=== PATIENT | female | born 1985 | race Caucasian/White ===

== ENCOUNTER 2016-09-19 22:23 | Emergency (ER) | payer OTHER ==
[~2016-09-19] VITALS: Ht 175.3 cm; Wt 68.6 kg
[~2016-09-19 22:23] MED LIST: ATV/1 PO
[2016-09-19 22:25] VITALS: TEMP 37.6; Ht 175.3 cm; Wt 68.6 kg
[2016-09-19] MEDS ORDERED: SODIUM CHLORIDE 0.9% 1000ML 1,000 ML IV STA (22:48)
[2016-09-19] MEDS ORDERED: KETOROLAC TROMETHAMINE 15 MG/ML VIAL IV STA (22:48)
[2016-09-19] MEDS ORDERED: ONDANSETRON INJ 2 MG/ML 2 ML VIAL IV STA (22:48)
[2016-09-19] MEDS ORDERED: HYDROmorphone INJ 1 MG/ML SYR IV STA (22:48)
[2016-09-19] MEDS ORDERED: [UNRECOGNIZED DRUG - CODE] PO (22:52)
[2016-09-19 23:06] LABS: URINE APPEARANCE CLEAR (CLEAR); URINE BILIRUBIN NEG (NEG); URINE COLOR YELLOW; URINE EPITHELIAL CELL AUTO >30 /lpf (0-5); URINE NITRITE NEG (NEG); URINE PH 8.5 (4.5-7.5); URINE SPECIFIC GRAVITY 1.014 (1.000-1.030); UROBILINOGEN POS (NEG); ZZUR CULT IF INDIC CLEAN CATCH YES
[2016-09-19 23:22] LABS: MANUAL MICROSCOPIC REQUIRED? NO; REVIEW REQ? NO
[2016-09-19 23:23] LABS: SULFASALICYLIC ACID NEG (NEG)
[2016-09-19 23:24] LABS: BASO % 0.2 %; BASO ABS # 0.02 K/uL (0-0.2); COMPLETE YES; EOS % 0.8 %; HEMATOCRIT 40.8 % (37-47); IG% 0.3 %; LYMPH % 18.7 %; LYMPH ABS # 2.28 K/uL (1.2-3.4); MEAN CELL VOLUME 90.9 fL (80-100); MEAN CORPUSCULAR HEMOGLOBIN 31.4 pg (25-34); MEAN CORPUSCULAR HGB CONC 34.6 g/dl (32-36); MEAN PLATELET VOLUME 9.4 fL (7.4-10.4); MONO % 12.4 %; NEUT % 67.6 %; PLATELET COUNT 193 K/uL (130-400); RED BLOOD COUNT 4.49 M/uL (4.2-5.4); WHITE BLOOD COUNT 12.22 K/uL (4.8-10.8)
[2016-09-19 23:46] LABS: ALT/SGPT 17 U/L (12-78); BLOOD UREA NITROGEN 8 mg/dl (7-18); BUN/CREATININE RATIO 8.7 (10-20); CALCIUM 9.1 mg/dl (8.5-10.1); CARBON DIOXIDE 27 mmol/L (21-32); CHLORIDE 100 mmol/L (98-107); GLUCOSE 103 mg/dl (70-99); POTASSIUM 3.7 mmol/L (3.5-5.1); SODIUM 134 mmol/L (136-145)
[2016-09-19 23:49] LABS: ALKALINE PHOSPHATASE 93 U/L (45-117); AST/SGOT 11 U/L (15-37)
[2016-09-20] MEDS ORDERED: HYDROmorphone INJ 1 MG/ML SYR IV STA (00:15)
--- NOTE | 2016-09-20 01:10 | DIAGNOSTIC IMAGING REPORT ---
ULTRASOUND RIGHT UPPER QUADRANT ABDOMEN CLINICAL HISTORY: Right upper quadrant abdominal pain. COMPARISON STUDY: Abdominal CT dated 12/29/2015. Abdominal ultrasound dated 02/04/2016. TECHNIQUE: Real-time, grayscale, and color flow sonography of the right upper quadrant of the abdomen was performed. Images are reviewed in the transverse and longitudinal planes. FINDINGS: Liver: The liver is enlarged, measuring 20 cm in length. The liver demonstrates heterogeneously increased echotexture consistent with hepatic steatosis. There is no intrahepatic biliary ductal dilatation. The main portal vein is patent. Gallbladder: The gallbladder is contracted and grossly unremarkable. No shadowing gallstones are identified. There is no gallbladder wall thickening or pericholecystic fluid. A sonographic Sawant's sign is reportedly absent. The common bile duct measures up to 0.5 cm in diameter. Pancreas: Visualized portions of the pancreatic head and body are normal in appearance. The splenic vein is patent. No peripancreatic fluid is seen. Right kidney: Survey images of the right kidney demonstrate normal size and echotexture. There is no hydronephrosis. There is mild fullness the right renal collecting system. This is similar to previous. Ascites: None. IMPRESSION: 1. No acute sonographic abnormality is identified. No gallstones are seen. 2. Hepatomegaly and hepatic steatosis. Electronically signed by: Eric Cortez M.D. 09/20/2016 1:09 AM Dictated Date/Time: 09/20/2016 1:07 AM
[2016-09-20] MEDS ORDERED: HYDROmorphone INJ 0.5 MG/0.5 ML SYR IV STA (01:18)
[2016-09-20] MEDS ORDERED: OPTIRAY 320 IV PRN (01:30)
--- NOTE | 2016-09-20 02:08 | DIAGNOSTIC IMAGING REPORT ---
CT SCAN OF THE ABDOMEN AND PELVIS WITH IV CONTRAST CLINICAL HISTORY: Right upper quadrant abdominal pain. COMPARISON STUDY: Abdominal CT dated 12/29/2015. Abdominal ultrasound dated 09/20/2016. TECHNIQUE: Following the IV administration of 100 cc of Optiray 320, CT scan of the abdomen and pelvis is performed from the lung bases to the proximal femora. Images are reviewed in the axial, sagittal, and coronal planes. IV contrast was administered without complication. Automated dose control exposure was utilized. CT DOSE: 313.09 mGy.cm FINDINGS: Lung bases: The heart is normal in size and without pericardial effusion. The lung bases are clear. Liver: The contrast-enhanced liver is enlarged, measuring 19.7 cm in length. The liver demonstrates diffusely diminished attenuation consistent with hepatic steatosis. There is no intrahepatic biliary ductal dilatation. The hepatic veins and portal veins are patent. Gallbladder: Contracted. Spleen: Normal in size and attenuation. Pancreas: Unremarkable. Adrenal glands: Unremarkable. Kidneys: The contrast enhanced kidneys are normal in size and without hydronephrosis. There is symmetric cortical enhancement. There is heterogeneous perfusion of the left kidney, greatest in the upper and lower pole. The right kidney enhances homogeneously. Abdominal vasculature: The abdominal aorta is normal in course and caliber. Bowel: The small bowel and colon are normal in course and caliber. There is moderate colonic fecal retention. The appendix is well-visualized and normal. Peritoneum: There is no intraperitoneal free air or abdominal ascites. There is a small fat-containing umbilical hernia. Lymphadenopathy: None. Pelvic viscera: The bladder, uterus, and adnexa are normal as visualized. There are bilateral ovarian follicles. An involuting follicle suggested in the left ovary. Trace free fluid in the cul-de-sac is likely within physiologic limits. Skeletal structures: No lytic or blastic lesions are seen. IMPRESSION: 1. There is heterogeneous perfusion of the left kidney. This is a nonspecific finding but can be seen in the setting of pyelonephritis. Correlation with clinical findings and urinalysis will be required. 2. The right kidney enhances homogeneously. 3. Hepatomegaly and hepatic steatosis. 4. Moderate constipation. 5. Additional findings as above. Electronically signed by: Eric Cortez M.D. 09/20/2016 2:07 AM Dictated Date/Time: 09/20/2016 2:00 AM
[2016-09-20] MEDS ORDERED: SULF800T23 PO (02:44)
[2016-09-20] MEDS ORDERED: OXYC1TAB3 PO (02:44)
[2016-09-20] MEDS ORDERED: ONDANSETRON HOME PACK 4MG OD TAB PO ONE (02:45)
[2016-09-20] MEDS ORDERED: SEPTRA DS HOME PACK 1 EA VIAL PO ONE (02:45)
[2016-09-20] MEDS ORDERED: ONDA4TAB10 SL (02:45)
[2016-09-20] MEDS ORDERED: OXYCODONE IR HOME PACK PO ONE (02:45)
--- NOTE | 2016-09-20 02:45 | EMERGENCY ROOM VISIT NOTE ---
History First contact with patient: 22:30 Chief Complaint: ABDOMINAL PAIN Stated Complaint: PANCREATITIS Nursing Triage Summary: Pt reports generalized abdominal pain that began approx 3 days ago. Unable to move bowels since pain began. Pt reports the pain feel like pressure on the L side and is similar to how she felt when she had pancreatitis. Pt rates pain 10/10 at this time. History of Present Illness The patient is a 31 year old female who presents to the Emergency Room with complaints of abdominal pain which began 3 days ago. The patient states that the pain is located across the upper abdomen. The pain radiates into her back. She states it hurts to breathe and she is bloated. She has had 3 episodes of vomiting today. She reports that she felt feverish, but did not take her temperature. She has a cramping sensation across her entire abdomen. She states the pain is now constant and stabbing. She rates the discomfort a 10/ 10. The pain is worse when she eats or drinks anything. The patient states she does have a history of pancreatitis and the symptoms feel similar. She states that she does drink occasionally, and did drink some alcohol last week prior to the onset of symptoms. Her last menstrual period was 2.5 weeks ago. She denies any urinary symptoms, chest pain, changes in bowel movements or blood in her stools. Review of Systems A complete 10 point review of systems was reviewed with the patient with pertinent positives and negatives as per history of present illness. All else were negative. Past Medical/Surgical History Medical Problems: (1) Anxiety (2) Heroin addiction Surgical Problems: (1) H/O section Family History FHx: lung disease Hypertension Seizures Social History Smoking Status: Current Every Day Smoker Alcohol Use: occasionally Drug Use: none Marital Status: in relationship Housing Status: lives with family Occupation Status: unemployed Current/Historical Medications Scheduled Lorazepam (Ativan), 2 MG PO BID Methadone Hcl (Methadone Hcl), 10 ML PO DAILY Ondasetron Odt (Zofran Odt), 4 MG SL Q6H Sulfa/Trimethoprim (Bactrim Ds 800MG/160MG), 1 TAB PO BID Scheduled PRN Oxycodone Ir (Roxicodone Ir), 1 TAB PO Q6H PRN for Pain Allergies Coded Allergies: No Known Allergies (Unverified , 09/19/16) Physical Exam Vital Signs Date Time Temp Pulse Resp B/P (MAP) Pulse Ox O2 Delivery O2 Flow Rate FiO2 09/20/16 03:20 75 18 109/63 97 09/20/16 02:35 79 20 112/70 95 Room Air 09/20/16 00:25 76 16 117/64 97 Room Air 09/19/16 22:25 37.6 106 18 119/74 99 Room Air Physical Exam VITALS: Vitals are noted on the nurse's note and reviewed by myself. Vital signs stable. GENERAL: This is a 31-year-old female, in no acute distress, nondiaphoretic, well-developed well-nourished. HEENT: Normocephalic. PERRLA. EOMI. Nares patent. Mucous membranes moist. Neck is supple without nuchal rigidity. HEART: Regular rate and rhythm without murmurs gallops or rubs. LUNGS: Clear to auscultation bilaterally without wheezes, rales or rhonchi. ABDOMEN: Positive bowel sounds x 4. Soft, tender across the epigastric region and right upper quadrant. No guarding or rebound tenderness. Negative Sawant sign. NEURO: Patient was alert and oriented to person place and time. Medical Decision & Procedures ER Provider Diagnostic Interpretation: ULTRASOUND RIGHT UPPER QUADRANT ABDOMEN IMPRESSION: 1. No acute sonographic abnormality is identified. No gallstones are seen. 2. Hepatomegaly and hepatic steatosis. CT SCAN OF THE ABDOMEN AND PELVIS WITH IV CONTRAST IMPRESSION: 1. There is heterogeneous perfusion of the left kidney. This is a nonspecific finding but can be seen in the setting of pyelonephritis. Correlation with clinical findings and urinalysis will be required. 2. The right kidney enhances homogeneously. 3. Hepatomegaly and hepatic steatosis. 4. Moderate constipation. 5. Additional findings as above. Laboratory Results 09/19/16 23:10 Red Blood Count 4.49, Mean Corpuscular Volume 90.9, Mean Corpuscular Hemoglobin 31.4, Mean Corpuscular Hemoglobin Concent 34.6, Mean Platelet Volume 9.4, Neutrophils (%) (Auto) 67.6, Lymphocytes (%) (Auto) 18.7, Monocytes (%) (Auto) 12.4, Eosinophils (%) (Auto) 0.8, Basophils (%) (Auto) 0.2, Neutrophils # (Auto ) 8.26, Lymphocytes # (Auto) 2.28, Monocytes # (Auto) 1.52, Eosinophils # (Auto ) 0.10, Basophils # (Auto) 0.02 09/19/16 23:10 Test 09/19/16 22:53 09/19/16 23:10 Urine Color YELLOW Urine Appearance CLEAR (CLEAR) Urine pH 8.5 (4.5-7.5) Urine Specific [place] 1.014 (1.000-1.030) Urine Protein NEG (NEG) Urine Glucose (UA) NEG (NEG) Urine Ketones NEG (NEG) Urine Occult Blood TRACE (NEG) Urine Nitrite NEG (NEG) Urine Bilirubin NEG (NEG) Urine Urobilinogen POS (NEG) Urine Leukocyte Esterase TRACE (NEG) Urine WBC (Auto) 5-10 /hpf (0-5) Urine RBC (Auto) 5-10 /hpf (0-4) Urine Hyaline Casts (Auto) 1-5 /lpf (0-5) Urine Epithelial Cells (Auto) >30 /lpf (0-5) Urine Bacteria (Auto) 1+ (NEG) Urine Test NEG (NEG) White Blood Count 12.22 K/uL (4.8-10.8) Red Blood Count 4.49 M/uL (4.2-5.4) Hemoglobin 14.1 g/dL (12.0-16.0) Hematocrit 40.8 % (37-47) Mean Corpuscular Volume 90.9 fL (80-100) Mean Corpuscular Hemoglobin 31.4 pg (25-34) Mean Corpuscular Hemoglobin Concent 34.6 g/dl (32-36) Platelet Count 193 K/uL (130-400) Mean Platelet Volume 9.4 fL (7.4-10.4) Neutrophils (%) (Auto) 67.6 % Lymphocytes (%) (Auto) 18.7 % Monocytes (%) (Auto) 12.4 % Eosinophils (%) (Auto) 0.8 % Basophils (%) (Auto) 0.2 % Neutrophils # (Auto) 8.26 K/uL (1.4-6.5) Lymphocytes # (Auto) 2.28 K/uL (1.2-3.4) Monocytes # (Auto) 1.52 K/uL (0.11-0.59) Eosinophils # (Auto) 0.10 K/uL (0-0.5) Basophils # (Auto) 0.02 K/uL (0-0.2) RDW Standard Deviation 48.8 fL (36.4-46.3) RDW Coefficient of Variation 14.8 % (11.5-14.5) Immature Granulocyte % (Auto) 0.3 % Immature Granulocyte # (Auto) 0.04 K/uL (0.00-0.02) Anion Gap 7.0 mmol/L (3-11) Est Creatinine Clear Calc Drug Dose 94.7 ml/min Estimated GFR () 98.7 Estimated GFR (Non- 85.2 BUN/Creatinine Ratio 8.7 (10-20) Calcium Level 9.1 mg/dl (8.5-10.1) Total Bilirubin 0.4 mg/dl (0.2-1) Direct Bilirubin < 0.1 mg/dl (0-0.2) Aspartate Amino Transf (AST/SGOT) 11 U/L (15-37) Alanine Aminotransferase (ALT/SGPT) 17 U/L (12-78) Alkaline Phosphatase 93 U/L (45-117) Total Protein 7.5 gm/dl (6.4-8.2) Albumin 3.3 gm/dl (3.4-5.0) Lipase 115 U/L (73-393) Medications Administered Medications (Trade) Dose Ordered Sig/Angelica Route Start Time Stop Time Status Last Admin Dose Admin Hydromorphone HCl (Dilaudid Inj) 1 mg NOW STAT IV 09/19/16 22:48 09/19/16 22:51 DC 09/19/16 23:24 1 MG Sodium Chloride 1,000 ml @ 999 mls/hr Q1H1M STAT IV 09/19/16 22:48 09/19/16 23:48 DC 09/19/16 23:25 999 MLS/HR Ondansetron HCl (Zofran Inj) 4 mg NOW STAT IV 09/19/16 22:48 09/19/16 22:51 DC 09/19/16 23:25 4 MG Ketorolac Tromethamine (Toradol Inj) 15 mg NOW STAT IV 09/19/16 22:48 09/19/16 22:51 DC 09/19/16 23:25 15 MG Hydromorphone HCl (Dilaudid Inj) 1 mg NOW STAT IV 09/20/16 00:15 09/20/16 00:16 DC 09/20/16 00:23 1 MG Hydromorphone HCl (Dilaudid Inj) 0.5 mg NOW STAT IV 09/20/16 01:18 09/20/16 01:19 DC 09/20/16 01:30 0.5 MG Oxycodone HCl (Roxicodone Immediate Rel 5MG Home Pack) 1 homepack UD ONCE PO 09/20/16 02:45 09/20/16 02:46 DC 09/20/16 02:45 1 HOMEPACK Ondansetron HCl (ZOFRAN ODT 4MG Home Pack) 1 homepack UD ONCE PO 09/20/16 02:45 09/20/16 02:46 DC 09/20/16 02:45 1 HOMEPACK Trimethoprim/ Sulfamethoxazole (Sulfameth/ Trimeth Ds 800/ 160MG Home Pack) 1 homepack UD ONCE PO 09/20/16 02:45 09/20/16 02:46 DC 09/20/16 02:45 1 HOMEPACK ED Course The patient was evaluated as above. Labs were drawn and IV access was obtained. Patient was medicated with 1 mg Dilaudid IV. Ultrasound of the right upper quadrant was performed and read by radiology as above. Patient was reevaluated and had continued pain. She was given an additional [address] scan was ordered due to negative ultrasound and continued pain. Patient was reevaluated and findings were discussed. She will be discharged home. She did request one additional dose of pain medication prior to discharge and was given 0.5 mg Dilaudid. Discharge instructions were reviewed with the patient. The patient verbalized understanding of my assessment and treatment plan and was discharged home in good condition. Medical Decision Differential diagnosis includes pancreatitis, cholecystitis, pyelonephritis, kidney stone, ovarian cyst, ovarian torsion, colitis, gastroenteritis, appendicitis, among others. The patient is a 31-year-old female who presents today complaining of upper abdominal pain. The patient does have a history of pancreatitis. Labs revealed mild leukocytosis secondary to infection or possibly vomiting. No anemia or concerning electrolyte abnormalities. Kidney liver functions were within normal limits. Right upper quadrant ultrasound was negative. Due to persistent pain and leukocytosis, CT of the abdomen and pelvis was ordered. This showed evidence of possible pyelonephritis. Urinalysis was suggestive of possible infection and given the CT read she will be treated for urinary tract infection. She was given a very short course of pain medication at home, as the patient does have a history of drug abuse. She was instructed to follow-up with her primary care provider return if worsening or new/concerning symptoms. Based on the patient's presentation and work up, I feel the patient is stable for outpatient treatment. The patient was educated to return to the emergency department for any worsening of their current condition or new/concerning symptoms. She will follow up with her PCP. Medication reconciliation: I attest that I have personally reviewed the patient 's current medication list. Blood pressure screening: Patient was found to have normal blood pressure on screening and does not require follow-up. [place] Drug Monitoring Program Search Results: patient reviewed within database, no issues identified Impression Primary Impression: Upper abdominal pain Additional Impression: Urinary tract infection Departure Information Dispostion Home / Self-Care Condition GOOD Prescriptions Ondasetron Odt (ZOFRAN ODT) 4 Mg Tab 4 MG SL Q6H for Nausea, #15 TAB Prov: Mariluz Hernández PA-C 09/20/16 Oxycodone Ir (Roxicodone Ir) 5 Mg Tab 1 TAB PO Q6H Y for Pain, #4 TAB For Initial Treatment Prov: Mariluz Hernández PA-C 09/20/16 Sulfa/Trimethoprim (Bactrim Ds 800MG/160MG) Tab 1 TAB PO BID for 7 Days, #14 TAB Prov: Mariluz Hernández PA-C 09/20/16 Referrals Aidan Marie III, CRNP (PCP) Patient Instructions My [facility] Additional Instructions You have been treated in the Emergency Department for a Urinary Tract Infection (UTI). You have been prescribed Bactrim to be taken twice daily. This is an antibiotic. All antibiotics have the potential to cause diarrhea. Stop this medication and contact a medical provider if you were to develop any significant adverse side effects including: wheezing, shortness of breath, passing out, vomiting, or a diffuse rash. Always take antibiotics as directed and COMPLETE the ENTIRE course regardless of the improvement of your symptoms. You have been prescribed Oxy IR to be used for pain control. Take 1-2 tablets every 4-6 hours as needed for pain. This is a narcotic medication. You cannot drive or consume alcohol while on this medicine. This medicine should only be used for pain that cannot be controlled with [id number] pain medicines. You have been prescribed Zofran to be used for any nausea or vomiting. Take as prescribed. Drink plenty of water and stay well hydrated. As with any trip to the Emergency Department, you should follow-up with your Primary Care Provider from today's visit. Return to the emergency department if your symptoms persist despite treatment plan outlined above or if the following symptoms occur: increased fevers, chills , low back pain, nausea/vomiting, or blood in your urine. Problem Qualifiers
[2016-09-20 03:20] VITALS: BP 109/63; PULSE 75; O2SAT 97
== END 2016-09-20 03:21 | disposition home or self-care (01) ==
LOC: C.EDB 22:24
DX: N39.0 Urinary tract infection, site not specified (principal); F41.9 Anxiety disorder, unspecified; Z82.49 Family history of ischemic heart disease and other diseases of the circulatory system; Z82.0 Family history of epilepsy and other diseases of the nervous system; F11.21 Opioid dependence, in remission; F17.210 Nicotine dependence, cigarettes, uncomplicated; Z79.899 Other long term (current) drug therapy

== ENCOUNTER 2024-06-11 23:26 | Observation (INO) ==
[2024-06-12 00:17] LABS: Appearance Urine Clear (Clear); Bilirubin Urine Negative (Negative); Blood Urine Negative (Negative); Color Urine Yellow; Glucose Urine UA 2+ (Negative); Ketones Urine Negative (Negative); Leukocyte Esterase Urine Negative (Negative); Nitrite Urine Negative (Negative); Protein Urine Negative (Negative); Specific Gravity Urine 1.003 (1.000-1.030); Urobilinogen Urine Negative (Negative); pH Urine 6.5 (4.5-7.5)
[2024-06-12] MEDS: LORazepam 2 MG/1 ML VIAL IV STA ×2 (00:26→04:17)
[2024-06-12 00:33] LABS: Basophils # (auto) 0.06 K/uL (0.00-0.20); Basophils % (auto) 0.6 %; Eosinophils # (auto) 0.05 K/uL (0.00-0.50); Eosinophils % (auto) 0.5 %; Hematocrit (blood only) 36.8 % (37.0-47.0); Hemoglobin 11.5 g/dl (12.0-16.0); Immature Granulocytes # (auto) 0.04 K/uL (0.01-0.20); Immature Granulocytes % (auto) 0.4 %; Lymphocytes # (auto) 2.24 K/uL (1.20-3.40); Lymphocytes % (auto) 21.2 %; Mean Corpuscular Hemoglobin 24.7 pg (25.0-34.0); Mean Corpuscular Hgb Conc 31.3 g/dL (32.0-36.0); Mean Platelet Volume 11.1 fL (9.4-12.4); Monocytes % (auto) 7.6 %; Neutrophils # (auto) 7.38 K/uL (1.40-6.50); Neutrophils % (auto) 69.7 %; Platelet Count 195 K/uL (130-400); RDW Coefficient of Variation 19.9 % (11.5-14.5); RDW Standard Deviation 56.7 fL (36.4-46.3); Red Blood Count 4.66 M/uL (4.20-5.40); White Blood Count 10.57 K/ul (4.8-10.8)
[2024-06-12 00:50] LABS: Albumin Level 4.5 gm/dl (3.4-5.0); BUN Creatinine Ratio 7.5 (10-20); Bilirubin,Total 0.9 mg/dl (0.2-1.0); Calcium 9.9 mg/dl (8.6-10.3); Creatinine Clr Calc Pharmacy 129.6 ml/min; Globulin 4.4 gm/dl (2.5-4.0); Potassium 3.6 mmol/L (3.5-5.1); Total Protein 8.9 gm/dl (6.0-8.3)
[2024-06-12 00:57] LABS: Troponin I High Sensitivity 3.7 pg/ml (0-14)
[2024-06-12 01:03] LABS: Adenovirus PCR Not Detected (NotDetected); Bordetella parapertussis PCR Not Detected (NotDetected); Bordetella pertussis PCR Not Detected (NotDetected); Chlamydia pneumoniae PCR Not Detected (NotDetected); Coronavirus 229E PCR Not Detected (NotDetected); Coronavirus CoV-2 (COVID19)PCR Not Detected (NotDetected); Coronavirus HKU1 PCR Not Detected (NotDetected); Coronavirus NL63 PCR Not Detected (NotDetected); Coronavirus OC43PCR Not Detected (NotDetected); Human Metapneumovirus PCR Not Detected (NotDetected); Influenza A PCR Not Detected (NotDetected); Influenza B PCR Not Detected (NotDetected); Mycoplasma pneumoniae PCR Not Detected (NotDetected); Parainfluenza Virus 1 PCR Not Detected (NotDetected); Parainfluenza Virus 2 PCR Not Detected (NotDetected); Parainfluenza Virus 3 PCR Not Detected (NotDetected); Parainfluenza Virus 4 PCR Not Detected (NotDetected); Respiratory Syncytial VirusPCR Not Detected (NotDetected); Rhinovirus/Enterovirus PCR Not Detected (NotDetected)
[2024-06-12] MEDS: OPTIRAY 320 100ml IV ONE (01:04)
[2024-06-12 01:14] LABS: D Dimer 220 ug/L FEU (0-500)
--- NOTE | 2024-06-12 02:02 | XRay Report ---
EXAM: XR chest 1V portable CLINICAL HISTORY: Hypoxia. TECHNIQUE: An X-ray image of the chest is obtained in AP projection. COMPARISON: No prior studies are available for comparison. FINDINGS: Pulmonary Parenchyma: Lungs are clear bilaterally. No evidence of consolidation, collapse, or focal opacities. Prominent central bronchovascular markings. No evidence of pleural effusion or pleural thickening. Heart and Mediastinum: Heart size and shape are normal. No mediastinal widening or masses. Bony Thorax: The bony thorax appears intact without acute fractures or deformities. Old healed fracture of left clavicle. Soft Tissues: Soft tissues overlying the chest wall are unremarkable. IMPRESSION: 1. No pulmonary consolidation or collapse. 2. Prominent bronchovascular markings. Clinical correlation is advised to assess for bronchitis/pulmonary congestion. Electronically signed by Alex Tineo 06-12-2024 02:01 AM
--- NOTE | 2024-06-12 02:19 | Emergency Department Note ---
Impression & Plan Alcohol withdrawal, Acute hyperglycemia, Hypoxia admit to the [facility] ED Provider Note NAME: CHEPE ALFREDO AGE: 39 SEX: Female INFORMANT: Patient ED PROVIDER(S): Patricia Wahl DO CHIEF COMPLAINT: Abdominal pain and pressure PLAN: Disposition: admit to the [facility] MEDICAL DECISION MAKING: This is a 39-year-old female patient who presents to the emergency department with worsening abdominal pain and Abdominal pressure over the past couple days, especially on the right side of her abdomen. She also gives a history of foul- smelling urine for the past 6-8 weeks. patient does describe some episodes of constipation. Patient has found herself extremely anxious tonight. She ran out of her Klonopin 5 days ago. laboratory studies revealed no leukocytosis. The patient was mildly anemic with hemoglobin of 11.5. Sodium was slightly low at 133. Glucose was significantly elevated at 300. This is a new finding for the patient. alcohol level was 51.Patient became significantly hypoxic with O2 saturations of 83% on room air. She was placed on supplemental oxygen. Chest x-ray was performed was unremarkable. D-dimer was obtained and was negative. patient was treated with IV Ativan for symptoms of anxiety and what seems to be some alcohol withdrawal symptoms. CT scan of the abdomen/pelvis shows significant hepatomegaly and hepatic steatosis but no other significant findings. The hyperglycemia is certainly a new finding for this patient and the episodes of hypoxia may be related to lack of deep breathing secondary to the pain she experiences when she takes a deep breath. I discussed the case with the [facility] and they will evaluate for further inpatient care. Care/management discussed with: teaching manager and [facility] Triage Nursing notes: reviewed and agree With them. Vital Signs: reviewed and unremarkable Additional History obtained from: the patient's mother who is at the bedside Chronic Medical/Social Conditions affecting care: patient describes having hepatitis C which has been treated and hepatitis B which is dormant as she describes it Differential Diagnosis: renal failure, UTI, liver failure, alcohol withdrawal, ascites Diagnostics, independently interpreted by me: ECG: normal sinus rhythm at a rate of 94 with a prolonged QT at [address] segment elevation or signs of ischemia. There is no ectopy. Cardiac Monitoring: Normal sinus rhythm at 82 Imaging studies: Portable chest x-ray: No acute pulmonary infiltrates or consolidation. HPI: 39 year old Female arrives for evaluation of abdominal pressure and pain. worsening abdominal pain and Abdominal pressure over the past couple days, especially on the right side of her abdomen. She also gives a history of foul- smelling urine for the past 6-8 weeks. patient does describe some episodes of constipation. Patient has found herself extremely anxious tonight. She ran out of her Klonopin 5 days ago. PAST MEDICAL HISTORY: See Below, PAST SURGICAL HISTORY: See Below, SOCIAL HISTORY: See Below, HOME MEDICATIONS: See list ALLERGIES: none VITALS: See Below PHYSICAL EXAMINATION: HEENT: Head - normocephalic and atraumatic. Pupils are equal, round, and reactive to light. Extraocular eye muscles are intact, and sclera are anicteric. Nose - moist nasal mucosa without discharge. Mouth - moist buccal mucosa. Oropharynx is nonerythematous and there is no tonsillar exudate or edema noted. Neck: Supple; no Cervical lymphadenopathy or nuchal rigidity. There is no thyromegaly. Heart: Tachycardic rate and regular rhythm. There is a normal S1 and S2 with no murmurs, clicks, or gallops appreciated. Lungs: Clear to auscultation bilaterally with no wheezes, rales, or rhonchi. Abdomen: Soft, moderately distended with pain to palpation in the right upper and lower quadrants of the abdomen. There are no palpable pulsatile masses or hepatosplenomegaly. There is no guarding, rigidity, or rebound noted. Extremities: No evidence of cyanosis, clubbing, or edema. There are easily palpable peripheral pulses. Skin: warm and dry with good turgor and no rashes. Emergency department treatment: court monitor, supplemental oxygen, IV Ativan, IV normal saline solution.IV Toradol, IV Ativan emergency department course: The patient was evaluated in room A-11. A complete history and physical was performed. IV lock was initiated and labs were drawn as above. An order was placed for continuous cardiac monitoring. The patient was in a normal sinus rhythm at a rate of 82. Twelve-lead EKG was obtained as described above. The patient was given a dose of IV Ativan for her significant anxiety. Portable chest x-ray was performed. Patient had episodes of hypoxia was placed on supplemental oxygen. She went on to receive a dose of IV Toradol for the right sided abdominal pain that she was experiencing. Upper respiratory bio fire testing was obtained and was negative. She went for CT scan of the abdomen/pelvis. Patient was significantly hyperglycemic with a blood sugar of 300. She was started on IV normal saline. She appeared to be having increased anxiety/ alcohol withdrawal. I discussed the case with the [facility] Hospitalist and they will evaluate for further inpatient care. Past Med/Surg History Problem List (Updated 06/12/24 @ 07:46 by Patricia Wahl DO) Hypoxia (Acute) Acute hyperglycemia (Acute) Alcohol withdrawal (Acute) Tobacco abuse Constipation Abdominal pain Transaminitis Hyperglycemia Acute hypoxic respiratory failure Alcohol abuse Smoker Heroin addiction Sore throat Hepatitis C Lower back pain Anxiety (Chronic) Surgical History H/O oral surgery H/O section Family History Mother Panic attacks Bipolar 1 disorder Denies family history of Ovarian cancer Prostate cancer Myocardial infarction Breast cancer Colorectal cancer Social History Smoking Status: Current every day smoker Tobacco Type: Cigarettes Age Started Using Tobacco: 16; packs per day: 0.5; Cigarettes Per Day: 20; Second Hand Exposure: No; Do You Dip or Chew Tobacco: No; Hx Alcohol Use: Yes Alcohol type: hard liquor Hx Substance Use: Yes Last Used Substance Other:: 2010 Preferred Language: Malay Communication Ability: Effective Visual Impairment: No Limitations Hearing Ability: Normal Service Delivery Management Consultant Required: No Beliefs That Will Affect Care: None marital status: Single Current Living Situation: Family Current Living Situation Comment: lives with partner and 4 children current occupational status: unemployed Feels Safe at Home: Yes Childhood Exposure to Second-Hand Smoke: Yes Diet: low carbohydrate and regular Dental Care, Regularly: Yes Physical Activity Frequency: 1-2 Times per Week Seatbelt Use: always Sunscreen Use: Yes Assistive Devices: Denture - Upper and Denture - Lower Allergies Allergies Allergy/AdvReac Type Severity Reaction Status Date / Time No Known Allergies Allergy Verified 06/12/24 01:32 Home Meds Home Medications Medication Instructions Recorded Confirmed albuterol sulfate 90 mcg/actuation 1 - 2 puff inhalation .Q4-6HRS PRN 06/12/24 06/12/24 aerosol inhaler (Ventolin HFA) shortness of breath or wheezing methadone 5 mg/5 mL oral solution 43 mg PO DAILY 06/12/24 06/12/24 Previous Rx's Medication Instructions Recorded ondansetron HCl 8 mg tablet 8 mg PO Q12H PRN nausea and 04/06/24 vomiting #60 tabs fluoxetine 20 mg capsule 20 mg PO DAILY #30 caps 05/05/24 clonazepam 0.5 mg tablet See Rx Instructions PO .COMPLEX 05/17/24 #60 tabs buspirone 10 mg tablet 10 mg PO TID PRN anxiety #90 tabs 06/09/24 gabapentin 400 mg capsule 400 mg PO TID #45 caps 06/09/24 docusate sodium 100 mg capsule 100 mg PO BID #0 caps 06/12/24 Results & Data (ED) Vital Signs Vital Signs - 24 hr 06/11/24 23:38 06/11/24 23:54 06/12/24 00:02 Temperature 36.7 C Temperature Source Oral Pulse Rate 106 H 106 H Pulse Rate [Apical] 104 H Pulse Rate from SpO2 Sensor Respiratory Rate 16 20 Respiratory Effort / Characteristics Non-Labored Spontaneous Non-Labored Spontaneous Respiratory Pattern Regular Blood Pressure 157/104 H Blood Pressure [Right Arm] 140/92 Blood Pressure Mean 121 Blood Pressure Mean [Right Arm] 108 Blood Pressure Position Lying Blood Pressure Position [Right Arm] Pulse Oximetry 98 96 Oxygen Delivery Method Room Air Room Air Oxygen Flow Rate Sepsis Recent Fever Within 48 Hours No Sepsis New/Unexplained Change in Mental Status No Sepsis Action Taken by Nursing No Action Required Oxygen Flow Rate - Titration Pulse Oximetry Post Tiitration 06/12/24 00:13 06/12/24 00:51 06/12/24 01:36 Temperature Temperature Source Pulse Rate 104 H Pulse Rate [Apical] 82 Pulse Rate from SpO2 Sensor Respiratory Rate 18 18 Respiratory Effort / Characteristics Non-Labored Spontaneous Respiratory Pattern Regular Blood Pressure Blood Pressure [Right Arm] 114/73 Blood Pressure Mean Blood Pressure Mean [Right Arm] 86 Blood Pressure Position Blood Pressure Position [Right Arm] Lying Pulse Oximetry 97 83 L 93 Oxygen Delivery Method Room Air Room Air Nasal Cannula Nasal Cannula Oxygen Flow Rate 0 3 Sepsis Recent Fever Within 48 Hours Sepsis New/Unexplained Change in Mental Status Sepsis Action Taken by Nursing Oxygen Flow Rate - Titration 3 Pulse Oximetry Post Tiitration 96 06/12/24 02:30 06/12/24 03:24 06/12/24 03:30 Temperature Temperature Source Pulse Rate 83 79 Pulse Rate [Apical] 75 Pulse Rate from SpO2 Sensor 80 Respiratory Rate 20 22 Respiratory Effort / Characteristics Non-Labored Spontaneous Respiratory Pattern Blood Pressure 135/95 Blood Pressure [Right Arm] 134/80 Blood Pressure Mean 108 Blood Pressure Mean [Right Arm] 98 Blood Pressure Position Blood Pressure Position [Right Arm] Lying Pulse Oximetry 99 99 Oxygen Delivery Method Nasal Cannula Nasal Cannula Oxygen Flow Rate 3 3 Sepsis Recent Fever Within 48 Hours Sepsis New/Unexplained Change in Mental Status Sepsis Action Taken by Nursing Oxygen Flow Rate - Titration Pulse Oximetry Post Tiitration 06/12/24 03:45 06/12/24 04:00 Temperature Temperature Source Pulse Rate 76 81 Pulse Rate [Apical] Pulse Rate from SpO2 Sensor 77 83 Respiratory Rate 16 18 Respiratory Effort / Characteristics Respiratory Pattern Blood Pressure 129/92 118/89 Blood Pressure [Right Arm] Blood Pressure Mean 104 98 Blood Pressure Mean [Right Arm] Blood Pressure Position Blood Pressure Position [Right Arm] Pulse Oximetry 99 100 Oxygen Delivery Method Nasal Cannula Nasal Cannula Oxygen Flow Rate 3 3 Sepsis Recent Fever Within 48 Hours Sepsis New/Unexplained Change in Mental Status Sepsis Action Taken by Nursing Oxygen Flow Rate - Titration Pulse Oximetry Post Tiitration Laboratory Data 06/11/24 23:45 06/11/24 23:45 Lab Results 06/11/24 06/12/24 06/12/24 Range/Units 23:45 00:00 02:50 WBC 10.57 (4.8-10.8) K/ul RBC 4.66 (4.20-5.40) M/uL Hgb 11.5 L (12.0-16.0) g/dl POC Hgb 12.2 (12.0-16.0) g/dl Hct 36.8 L (37.0-47.0) % POC Hct 36 L (37-47) % MCV 79.0 L (80.0-100.0) fL MCH 24.7 L (25.0-34.0) pg MCHC 31.3 L (32.0-36.0) g/dL RDW Std Deviation 56.7 H (36.4-46.3) fL RDW Coeff of Migel 19.9 H (11.5-14.5) % Plt Count 195 (130-400) K/uL MPV 11.1 (9.4-12.4) fL Immature Gran % (Auto) 0.4 % Neut % (Auto) 69.7 % Lymph % (Auto) 21.2 % Cotton % (Auto) 7.6 % Eos % (Auto) 0.5 % Baso % (Auto) 0.6 % Neut # (Auto) 7.38 H (1.40-6.50) K/uL Lymph # (Auto) 2.24 (1.20-3.40) K/uL Cotton # (Auto) 0.80 H (0.11-0.59) K/uL Eos # (Auto) 0.05 (0.00-0.50) K/uL Baso # (Auto) 0.06 (0.00-0.20) K/uL Immature Gran # (Auto) 0.04 (0.01-0.20) K/uL D-Dimer 220 (0-500) ug/L FEU POC pH 7.41 (7.35-7.45) POC pCO2 45 (35-46) mmHg POC pO2 50 L (80-95) mmHg POC HCO3 28 H (19-24) trey/L POC Total CO2 30 (24-31) mmol/L POC Base Excess 4.0 H (-9-1.8) trey/L POC ABG O2 Sat 85.0 L (90-95) % POC Sodium 138 (135-144) mmol/L Sodium 133 L (136-145) mmol/L POC Potassium 3.8 (3.3-5.0) mmol/L Potassium 3.6 (3.5-5.1) mmol/L Chloride 96 L (98-107) mmol/L Carbon Dioxide 27 (21-32) mmol/L Anion Gap 10 (3-11) BUN 5 L (6-23) mg/dl Creatinine 0.67 (0.6-1.2) mg/dl Est Cr Clr Drug Dosing 129.6 ml/min eGFR 113.95 BUN/Creatinine Ratio 7.5 L (10-20) Glucose 300 H (70-99(Fasting)) mg/dl POC Glucose (70-99) mg/dl Estimat Average Glucose 249 mg/dl Hemoglobin A1c 10.3 H (4.5-5.6) % Calcium 9.9 (8.6-10.3) mg/dl Magnesium 1.3 L (1.7-2.4) mg/dl Total Bilirubin 0.9 (0.2-1.0) mg/dl AST 68 H (13-39) U/L ALT 27 (7-52) U/L Alkaline Phosphatase 124 H (34-104) U/L Troponin I High Sens 3.7 (0-14) pg/ml Total Protein 8.9 H (6.0-8.3) gm/dl Albumin 4.5 (3.4-5.0) gm/dl Globulin 4.4 H (2.5-4.0) gm/dl Albumin/Globulin Ratio 1.0 (0.9-2) Triglycerides (0-150) mg/dl Cholesterol (0-200) mg/dl LDL Cholesterol, Calc mg/dl VLDL Cholesterol, Calc (0-30) mg/dl HDL Cholesterol mg/dl Cholesterol/HDL Ratio (0-5) Lipase 39 (11-82) U/L Vitamin B12 219 (180-914) pg/ml Folate 3.70 L (>5.38) ng/ml Urine Color Yellow Urine Appearance Clear (Clear) Urine pH 6.5 (4.5-7.5) Ur Specific [place] 1.003 (1.000-1.030) Urine Protein Negative (Negative) Urine Glucose (UA) 2+ H (Negative) Urine Ketones Negative (Negative) Urine Blood Negative (Negative) Urine Nitrite Negative (Negative) Urine Bilirubin Negative (Negative) Urine Urobilinogen Negative (Negative) Ur Leukocyte Esterase Negative (Negative) Ethyl Alcohol mg/dL 51.8 H (<10.0) mg/dl Adenovirus (PCR) Not Detected (NotDetected) B. pertussis DNA (PCR) Not Detected (NotDetected) B.parapertussis DNA PCR Not Detected (NotDetected) C. pneumoniae DNA (PCR) Not Detected (NotDetected) Coronavirus OC43 (PCR) Not Detected (NotDetected) Coronavirus HKU1 (PCR) Not Detected (NotDetected) Coronavirus 229E (PCR) Not Detected (NotDetected) SARS-CoV-2 (PCR) Not Detected (NotDetected) Coronavirus NL63 (PCR) Not Detected (NotDetected) Hep Bs Antigen Negative (Negative) Hepatitis C Antibody Prelim Positive A (Negative) Human Metapneumovir PCR Not Detected (NotDetected) Influenza Type A (PCR) Not Detected (NotDetected) Influenza Type B (PCR) Not Detected (NotDetected) M. pneumoniae (PCR) Not Detected (NotDetected) Parainfluenza 1 (PCR) Not Detected (NotDetected) Parainfluenza 2 (PCR) Not Detected (NotDetected) Parainfluenza 3 (PCR) Not Detected (NotDetected) Parainfluenza 4 (PCR) Not Detected (NotDetected) RSV (PCR) Not Detected (NotDetected) Entero/Rhino (PCR) Not Detected (NotDetected) 06/12/24 06/12/24 Range/Units 04:17 04:29 WBC (4.8-10.8) K/ul RBC (4.20-5.40) M/uL Hgb (12.0-16.0) g/dl POC Hgb (12.0-16.0) g/dl Hct (37.0-47.0) % POC Hct (37-47) % MCV (80.0-100.0) fL MCH (25.0-34.0) pg MCHC (32.0-36.0) g/dL RDW Std Deviation (36.4-46.3) fL RDW Coeff of Migel (11.5-14.5) % Plt Count (130-400) K/uL MPV (9.4-12.4) fL Immature Gran % (Auto) % Neut % (Auto) % Lymph % (Auto) % Cotton % (Auto) % Eos % (Auto) % Baso % (Auto) % Neut # (Auto) (1.40-6.50) K/uL Lymph # (Auto) (1.20-3.40) K/uL Cotton # (Auto) (0.11-0.59) K/uL Eos # (Auto) (0.00-0.50) K/uL Baso # (Auto) (0.00-0.20) K/uL Immature Gran # (Auto) (0.01-0.20) K/uL D-Dimer (0-500) ug/L FEU POC pH (7.35-7.45) POC pCO2 (35-46) mmHg POC pO2 (80-95) mmHg POC HCO3 (19-24) trey/L POC Total CO2 (24-31) mmol/L POC Base Excess (-9-1.8) trey/L POC ABG O2 Sat (90-95) % POC Sodium (135-144) mmol/L Sodium (136-145) mmol/L POC Potassium (3.3-5.0) mmol/L Potassium (3.5-5.1) mmol/L Chloride (98-107) mmol/L Carbon Dioxide (21-32) mmol/L Anion Gap (3-11) BUN (6-23) mg/dl Creatinine (0.6-1.2) mg/dl Est Cr Clr Drug Dosing ml/min eGFR BUN/Creatinine Ratio (10-20) Glucose (70-99(Fasting)) mg/dl POC Glucose 144 H (70-99) mg/dl Estimat Average Glucose mg/dl Hemoglobin A1c (4.5-5.6) % Calcium (8.6-10.3) mg/dl Magnesium (1.7-2.4) mg/dl Total Bilirubin (0.2-1.0) mg/dl AST (13-39) U/L ALT (7-52) U/L Alkaline Phosphatase (34-104) U/L Troponin I High Sens (0-14) pg/ml Total Protein (6.0-8.3) gm/dl Albumin (3.4-5.0) gm/dl Globulin (2.5-4.0) gm/dl Albumin/Globulin Ratio (0.9-2) Triglycerides 125 (0-150) mg/dl Cholesterol 223 H (0-200) mg/dl LDL Cholesterol, Calc 175 mg/dl VLDL Cholesterol, Calc 25 (0-30) mg/dl HDL Cholesterol 23 mg/dl Cholesterol/HDL Ratio 9.7 H (0-5) Lipase (11-82) U/L Vitamin B12 (180-914) pg/ml Folate (>5.38) ng/ml Urine Color Urine Appearance (Clear) Urine pH (4.5-7.5) Ur Specific [place] (1.000-1.030) Urine Protein (Negative) Urine Glucose (UA) (Negative) Urine Ketones (Negative) Urine Blood (Negative) Urine Nitrite (Negative) Urine Bilirubin (Negative) Urine Urobilinogen (Negative) Ur Leukocyte Esterase (Negative) Ethyl Alcohol mg/dL (<10.0) mg/dl Adenovirus (PCR) (NotDetected) B. pertussis DNA (PCR) (NotDetected) B.parapertussis DNA PCR (NotDetected) C. pneumoniae DNA (PCR) (NotDetected) Coronavirus OC43 (PCR) (NotDetected) Coronavirus HKU1 (PCR) (NotDetected) Coronavirus 229E (PCR) (NotDetected) SARS-CoV-2 (PCR) (NotDetected) Coronavirus NL63 (PCR) (NotDetected) Hep Bs Antigen (Negative) Hepatitis C Antibody (Negative) Human Metapneumovir PCR (NotDetected) Influenza Type A (PCR) (NotDetected) Influenza Type B (PCR) (NotDetected) M. pneumoniae (PCR) (NotDetected) Parainfluenza 1 (PCR) (NotDetected) Parainfluenza 2 (PCR) (NotDetected) Parainfluenza 3 (PCR) (NotDetected) Parainfluenza 4 (PCR) (NotDetected) RSV (PCR) (NotDetected) Entero/Rhino (PCR) (NotDetected) Administered Medications Clonazepam (Clonazepam 0.25 Mg Od Tab) 0.5 mg PO BID [facility] Stop: 07/12/24 08:59 Last Admin: 06/12/24 09:25 Dose: 0.5 mg Documented By: GABRIELA Docusate Sodium (Docusate Sodium 100 Mg Cap) 100 mg PO BID [facility] Stop: 07/12/24 08:59 Last Admin: 06/12/24 09:25 Dose: 100 mg Documented By: GABRIELA Fluoxetine HCl (Fluoxetine Hcl 20 Mg Cap) 20 mg PO DAILY [facility] Stop: 07/12/24 08:59 Last Admin: 06/12/24 09:25 Dose: 20 mg Documented By: GABRIELA Insulin Aspart (Insulin Aspart Per Unit Charge) 0 units SC ACHS ELISE Stop: 07/12/24 07:29 Last Admin: 06/12/24 11:51 Dose: Not Given Documented By: Admin: 06/12/24 08:22 Dose: Not Given Documented By: GABRIELA Methadone HCl (Methadone Oral Soln 2 Mg/Ml) 43 mg PO DAILY ELISE Stop: 06/26/24 08:59 Last Admin: 06/12/24 09:40 Dose: 43 mg Documented By: GABRIELA Nicotine (Nicotine 21 Mg/24 Hr Tdsy) 1 patch TD QAM ELISE Stop: 07/12/24 04:14 Last Admin: 06/12/24 04:45 Dose: 1 patch Documented By: MEKHI Non-Formulary Medication (Patient's Own Controlled Med 1) 1 each PO DAILY ELISE Stop: 06/26/24 08:59 Last Admin: 06/12/24 09:41 Dose: 43 mg Documented By: GABRIELA Discontinued Medications Sodium Chloride (Nss) 500 mls @ 999 mls/hr IV .Q31M ONE Stop: 06/12/24 03:02 Last Infusion: 06/12/24 03:25 Dose: Infused Documented By: Admin: 06/12/24 02:35 Dose: 999 mls/hr Documented By: MEKHI Thiamine HCl 100 mg/ Syringe 10 mls @ 2 mls/min IV NOW STA Stop: 06/12/24 03:39 Last Admin: 06/12/24 04:18 Dose: 2 mls/min Documented By: MEKHI Folic Acid 1 mg/ Syringe 10 mls @ 5 mls/min IV ONE ONE Stop: 06/12/24 03:46 Last Admin: 06/12/24 04:18 Dose: 5 mls/min Documented By: MEKHI Magnesium Sulfate/Dextrose (Magnesium Sulfate / D5w) 1 gm in 100 mls @ 50 mls/hr IV Q2H ELISE Stop: 06/12/24 11:14 Last Infusion: 06/12/24 11:18 Dose: Infused Documented By: Admin: 06/12/24 09:25 Dose: 50 mls/hr Documented By: Infusion: 06/12/24 09:25 Dose: Infused Documented By: Admin: 06/12/24 07:28 Dose: 50 mls/hr Documented By: Infusion: 06/12/24 07:28 Dose: Infused Documented By: Admin: 06/12/24 05:42 Dose: 50 mls/hr Documented By: MEKHI Ioversol (Optiray 320 100ml) 100 ml IV ONCE ONE Stop: 06/12/24 01:05 Last Admin: 06/12/24 01:04 Dose: 93 ml Documented By: VALENTIN Ketorolac Tromethamine (Ketorolac Tromethamine 15 Mg/Ml Vial) 15 mg IV NOW STA Stop: 06/12/24 03:28 Last Admin: 06/12/24 04:18 Dose: 15 mg Documented By: MEKHI Lorazepam (Lorazepam 2 Mg/1 Ml Vial) 0.5 mg IV NOW STA Stop: 06/12/24 00:11 Last Admin: 06/12/24 00:26 Dose: 0.5 mg Documented By: MEKHI Lorazepam (Lorazepam 2 Mg/1 Ml Vial) 0.5 mg IV NOW STA Stop: 06/12/24 03:04 Last Admin: 06/12/24 04:17 Dose: 0.5 mg Documented By: MEKHI Multivitamins (Multivitamin Tab) 1 tab PO NOW STA Stop: 06/12/24 03:36 Last Admin: 06/12/24 04:18 Dose: 1 tab Documented By: MEKHI Potassium Chloride (Potassium Chloride Crtab 20 Meq Tabcr) 40 meq PO NOW STA Stop: 06/12/24 05:14 Last Admin: 06/12/24 05:42 Dose: 40 meq Documented By: MEKHI Imaging Data Radiologist's Impression: Abdomen/Pelvis CT 06/12/24 00:08 EXAM: CT abd pelvis IV con only CLINICAL HISTORY: eval for ascites; R cva pain TECHNIQUE: Contiguous axial images were obtained from the level of the diaphragm to the pubic symphysis with intravenous contrast. Coronal and sagittal reconstructions were likewise performed and indicated to increase the sensitivity for detecting clinically relevant pathology. If IV contrast material had not been administered, the likelihood of detecting abnormalities relevant to the patient's condition would have been substantially decreased. CT scan was performed according to ALARA (as low as reasonable achievable). COMPARISON: None. FINDINGS: The visualized lung bases are clear. The liver is enlarged in size and reduced attenuation. Tiny hypodense lesion is noted in right lobe of liver - appears simple cyst. . There is no intra or extrahepatic biliary ductal dilatation. Hepatic vasculature is patent. The gallbladder is distended and shows a calculus of size 18 mm with normal wall thickness.. The spleen, pancreas, and adrenal glands are unremarkable. The kidneys are normal in size and attenuation. There is no hydronephrosis or perinephric fat stranding. No renal calculi or renal masses are identified. The ureters are normal in caliber and no ureteral calculi are seen. The bladder is normal in contour. Pelvic viscera are unremarkable. No focal or diffuse bowel wall thickening or evidence of bowel obstruction is identified. The appendix is visualized in the right lower quadrant and appears within normal limits. Abdominal and pelvic vasculature is patent. No adenopathy or fluid collections are seen. No aggressive appearing osseous lesions are identified. IMPRESSION: Uncomplicated cholelithiasis. Hepatomegaly with hepatic steatosis: advise liver function tests Electronically signed by Rodrigo Hughes 06-12-2024 02:55 AM Chest X-Ray 06/12/24 00:57 EXAM: XR chest 1V portable CLINICAL HISTORY: Hypoxia. TECHNIQUE: An X-ray image of the chest is obtained in AP projection. COMPARISON: No prior studies are available for comparison. FINDINGS: Pulmonary Parenchyma: Lungs are clear bilaterally. No evidence of consolidation, collapse, or focal opacities. Prominent central bronchovascular markings. No evidence of pleural effusion or pleural thickening. Heart and Mediastinum: Heart size and shape are normal. No mediastinal widening or masses. Bony Thorax: The bony thorax appears intact without acute fractures or deformities. Old healed fracture of left clavicle. Soft Tissues: Soft tissues overlying the chest wall are unremarkable. IMPRESSION: 1. No pulmonary consolidation or collapse. 2. Prominent bronchovascular markings. Clinical correlation is advised to assess for bronchitis/pulmonary congestion. Electronically signed by Alex Tineo 06-12-2024 02:01 AM Discharge Plan Visit Data Chief Complaint: Back Injury/Pain Stated Complaint: BACK/ABD PAIN ED Provider: Patricia Wahl Discharge Problem: Alcohol withdrawal, Acute hyperglycemia, Hypoxia Patient Disposition: Admitted As Inpatient Discharge Instructions Interventions: ED Discharge Assessment Last Done: 06/12/24 06:20
[2024-06-12] MEDS: SODIUM CHLORIDE 0.9% 500 ML IV ONE (02:35)
--- NOTE | 2024-06-12 02:55 | CT Scan Report ---
EXAM: CT abd pelvis IV con only CLINICAL HISTORY: eval for ascites; R cva pain TECHNIQUE: Contiguous axial images were obtained from the level of the diaphragm to the pubic symphysis with intravenous contrast. Coronal and sagittal reconstructions were likewise performed and indicated to increase the sensitivity for detecting clinically relevant pathology. If IV contrast material had not been administered, the likelihood of detecting abnormalities relevant to the patient's condition would have been substantially decreased. CT scan was performed according to ALARA (as low as reasonable achievable). COMPARISON: None. FINDINGS: The visualized lung bases are clear. The liver is enlarged in size and reduced attenuation. Tiny hypodense lesion is noted in right lobe of liver - appears simple cyst. . There is no intra or extrahepatic biliary ductal dilatation. Hepatic vasculature is patent. The gallbladder is distended and shows a calculus of size 18 mm with normal wall thickness.. The spleen, pancreas, and adrenal glands are unremarkable. The kidneys are normal in size and attenuation. There is no hydronephrosis or perinephric fat stranding. No renal calculi or renal masses are identified. The ureters are normal in caliber and no ureteral calculi are seen. The bladder is normal in contour. Pelvic viscera are unremarkable. No focal or diffuse bowel wall thickening or evidence of bowel obstruction is identified. The appendix is visualized in the right lower quadrant and appears within normal limits. Abdominal and pelvic vasculature is patent. No adenopathy or fluid collections are seen. No aggressive appearing osseous lesions are identified. IMPRESSION: Uncomplicated cholelithiasis. Hepatomegaly with hepatic steatosis: advise liver function tests Electronically signed by Rodrigo Hughes 06-12-2024 02:55 AM
[2024-06-12 03:05] LABS: iSTAT Arterial Blood Gas HCO3 28 meg/L (19-24); iSTAT Arterial Blood Gas pCO2 45 mmHg (35-46); iSTAT Arterial Blood Gas pH 7.41 (7.35-7.45); iSTAT Arterial Blood Gas pO2 50 mmHg (80-95); iSTAT Carbon Dioxide 30 mmol/L (24-31); iSTAT Hematocrit 36 % (37-47); iSTAT Hemoglobin 12.2 g/dl (12.0-16.0); iSTAT Potassium 3.8 mmol/L (3.3-5.0); iSTAT Sodium 138 mmol/L (135-144)
--- NOTE | 2024-06-12 03:30 | History & Physical Report ---
Date of Service June 12, 2024 Assessment & Plan (1) Alcohol abuse: (2) Acute hypoxic respiratory failure: (3) Hyperglycemia: (4) Transaminitis: (5) Abdominal pain: (6) Constipation: (7) Tobacco abuse: Plan Patient is a 43-year-old with a past medical history chronic alcohol use, hepatitis C, anxiety, chronic opioid dependence. She presented to the ED via EMS due to abdominal pain, abdominal distention, and foul-smelling urine for 3 months. She was found to have a glucose level of 300 as well as glucose in her urine. Patient began to go through alcohol withdrawal and was given Ativan in the ED. She became hypoxic at 83% on room air, suspect secondary to IV benzodiazepine use versus restricted breathing with hepatomegaly and pain. She is being admitted for alcohol withdrawal. #alcohol withdrawal Typically drinks 3-5 ounces of Vodka daily; last drink between 4-8pm 06/11 Alc level 51.8 in ED AWSS protocol - at risk with Ativan prn Thiamine IV 100mg and folic acid 1mg IV QAM folate, B12, B1 levels pending #hypoxia 2/2 IV benzodiazepine use vs mechanical with restricted breathing (hepatomegaly and pain) 83% on RA -> 3 L NC CXR essentially negative, bronchovascular markings no leukocytosis, afebrile, VSS biofire negative oxygen prn for O2 <94%, wean as tolerated incentive spirometry #hyperglycemia suspect newly diagnosed T2DM; family history of UA showed 2+ glucose glucose 300 in ED; repeat ordered and 144 loose SSI with CF 40, defer carb ratio A1C and lipid panel with Am labs #transaminitis/hepatitis/abdominal pain history of treated Hep C and possible hep B AP CT showed uncomplicated cholelithiasis, hepatomegaly, hepatic steatosis LFTs at baseline - AST 68, Alk phos 124 hepatitis panel ordered in ED if hepatitis workup negative, consider gallbladder US Questran BID, Toradol prn trend CMP #Hypomagnesemia/hypokalemia Mag 1.3 -> 3G IV ordered K+ 3.6 -> 40 meq PO ordered trend BMP and Mag #constipation patient reports no normal BM for several weeks AP CT showed no fecal retention or obstruction colace scheduled daily #tobacco use 1PPD encourage smoking cessation Nicotine patch daily Chronic stable diagnoses: chronic pain medication dependence - continue methadone 43 mg PO daily anxiety - buspirone prn, pcp notes to be titrating off Klonopin VTE ppx: SCDs Diet: t2dm Dispo: PCU Admission and Anticipated Discharge Date Admission Date: 06/12/24 History of Present Illness Chief Complaint: back injury/pain Primary Care Provider: Manda Ocampo MD Patient is a 43-year-old with a past medical history chronic alcohol use, hepatitis C, anxiety, chronic opioid dependence. She presented to the ED via EMS due to abdominal pain, abdominal distention, and foul-smelling urine for 3 months. She was found to have a glucose level of 300 as well as glucose in her urine. Patient began to go through alcohol withdrawal and was given Ativan in the ED. She became hypoxic at 83% on room air, suspect secondary to IV benzodiazepine use versus restricted breathing with hepatomegaly and pain. She is being admitted for alcohol withdrawal. Patient seen at bedside with her mother present. Spent a significant amount of time with them. She stated that for the past few weeks she has had significant abdominal pain that is worsening, mostly on her right upper quadrant. It got significantly worse today after she took a drink of alcohol. She previously detoxed from alcohol for 2 days however could not take it anymore because she was not sleeping. She stated the pain has progressed up into her chest and feels like a burning sensation but denies it feeling like acid reflux. She also stated she has varicose veins of her lower extremity. Patient drinks approximately 3-5 shots of vodka a day and a mixed drink with soda, her last drink was at 4 to 8 PM this evening. Patient feels as though she is in significant withdrawal now in the 2 mg of Ativan in the ED is not helping at all. She has sweaty palms, ears are burning, and she is anxious. She is most concerned about the pressure in her abdomen. Patient also stated she has been out of Klonopin for 3 days and the pain is just too much. Of note recent PCP notes state that patient tested positive for alprazolam and is trying to be titrated off Klonopin. She has not prescribed alprazolam. Patient denies any past history of diabetes, she does have a significant family history of type 2 diabetes. Patient also stated she has not had a regular bowel movement in several weeks. She has just had small bowel movements, no melena or bright red blood in stool. She has not tried any stool softeners at home. Patient has not been able to eat much over the past 24 hours due to pain, she denies pain with eating. She denies any nausea. Patient smokes 1 pack of cigarettes per day. 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 She is still on methadone at 43 mg daily, is adamant that she needs this dosing every day. Patient is very concerned about missing of her home medications. She wishes to be full code. Patient is agreeable to inpatient admission for alcohol withdrawal and to further evaluate her hepatomegaly and abdominal pain. Patient was tearful on exam. Allergies Allergy/AdvReac Type Severity Reaction Status Date / Time No Known Allergies Allergy Verified 06/12/24 01:32 Home Medications Medication Instructions Recorded Confirmed Type ondansetron HCl 8 mg tablet 8 mg PO Q12H PRN nausea and 04/06/24 06/12/24 Rx vomiting #60 tabs fluoxetine 20 mg capsule 20 mg PO DAILY #30 caps 05/05/24 06/12/24 Rx clonazepam 0.5 mg tablet See Rx Instructions PO .COMPLEX 05/17/24 06/12/24 Rx #60 tabs buspirone 10 mg tablet 10 mg PO TID PRN anxiety #90 tabs 06/09/24 06/12/24 Rx gabapentin 400 mg capsule 400 mg PO TID #45 caps 06/09/24 06/12/24 Rx albuterol sulfate 90 mcg/actuation 1 - 2 puff inhalation .Q4-6HRS PRN 06/12/24 06/12/24 History aerosol inhaler (Ventolin HFA) shortness of breath or wheezing methadone 5 mg/5 mL oral solution 43 mg PO DAILY 06/12/24 06/12/24 History Past Med/Surg History Problem List (Updated 06/12/24 @ 04:58 by Patricia Mena PA-C) Tobacco abuse Constipation Abdominal pain Transaminitis Hyperglycemia Acute hypoxic respiratory failure Alcohol abuse Smoker Heroin addiction Sore throat Hepatitis C Lower back pain Anxiety (Chronic) Surgical History H/O oral surgery H/O section Family History Mother Panic attacks Bipolar 1 disorder Denies family history of Ovarian cancer Prostate cancer Myocardial infarction Breast cancer Colorectal cancer Social History Smoking Status: Current every day smoker Tobacco Type: Cigarettes Age Started Using Tobacco: 16; packs per day: 0.5; Cigarettes Per Day: 7-10; Second Hand Exposure: Yes; Do You Dip or Chew Tobacco: No; Hx Alcohol Use: No Hx Substance Use: No Preferred Language: Italian Communication Ability: Effective Visual Impairment: No Limitations Hearing Ability: Normal marital status: Single Current Living Situation: Family and Significant Other current occupational status: unemployed Feels Safe at Home: Yes Childhood Exposure to Second-Hand Smoke: Yes Diet: low carbohydrate and regular Dental Care, Regularly: Yes Physical Activity Frequency: 1-2 Times per Week Seatbelt Use: always Sunscreen Use: Yes Review of Systems Review of Systems: See HPI Physical Exam Physical Exam: The patient is awake, alert and oriented 3, well developed and well nourished, normocephalic and atraumatic, in no acute distress. Non-toxic appearing. HEENT- EOMI, mucous membranes dry. Hearing grossly intact. Heart-normal S1 and S2. No murmurs, rubs or gallops. Lungs-clear bilaterally, no respiratory distress, no accessory muscle use. Abdomen-normal bowel sounds and soft. mild distention. Tender to right upper quadrant. Extremities- no clubbing, cyanosis, or edema. Rheumatologic-normal range of motion. Psychiatric- Anxious and tearful affect. Results & Data Results & Data Vital Signs (Past 12 Hours) Vital Signs Temp Pulse Pulse Resp BP BP Pulse Ox 06/12/24 02:30 75 20 134/80 99 06/12/24 01:36 82 18 114/73 93 06/12/24 00:51 83 L 06/12/24 00:13 104 H 18 97 06/12/24 00:02 104 H 20 140/92 96 06/11/24 23:54 36.7 C 106 H 16 157/104 H 98 06/11/24 23:38 106 H O2 Del Method O2 Flow Rate 06/12/24 02:30 Nasal Cannula 3 06/12/24 01:36 Nasal Cannula 3 06/12/24 00:51 Room Air, Nasal Cannula 0 06/12/24 00:13 Room Air 06/12/24 00:02 Room Air 06/11/24 23:54 Room Air 06/11/24 23:38 Laboratory Results reviewed CBC, CMP, UA, bio fire, alcohol level Diagnostic Findings reviewed CXR and AP CT Medications Administered ED1 mg IV Ativan, 500 mL NSS bolus ECG Additional Comments: NSR QTc 482 Rate 94 Code Status & VTE Plan Code Status full code VTE Prophylaxis Plan VTE Prophylaxis will be ordered: Yes Supervising Physician Co-Signing Physician Notes Attending addendum: I have physically seen this patient, have supervised the KELLY's activities, and agree with the H&P unless as otherwise noted. Assessment and Plan: The patient is a 43-year-old female with past medical history including chronic alcohol abuse, hepatitis C, anxiety, chronic opioid dependence, history of hepatitis C, history of heroin addiction, chronic low back pain. She presents to the emergency department via EMS due to abdominal pain that occurred after having a drink of alcohol earlier this evening, and developed severe right upper quadrant pain. She also reports issues with foul-smelling urine over the past 3 months. [facility] for further evaluation and treatment of potential alcohol withdrawal. #Alcohol withdrawal/alcohol intoxication- Alcohol level 51.8 on admission Patient reports she typically drinks 3 to 5 ounces of vodka daily, with the last drink being between 40 8 PM on 06/11. AWSS protocol with IV Ativan Thiamine 100 mg IV daily Folic acid 1 mg IV daily Check folate, B12 and B1 levels Hepatomegaly/hepatic steatosis/transaminitis- CT scan of abdomen and pelvis showed uncomplicated cholelithiasis, hepatomegaly and hepatic steatosis AST 68, ALP 124 Questran p.o. twice daily Toradol 15 mg IV every 6 hours as needed moderate pain Follow serial CBC with differential and chemistry profile r Acute respiratory failure with hypoxia- Decreased oxygen saturation in part due to decreased respiratory excursion due to abdominal pain associate with hepatomegaly Chest ray was negative Respiratory BioFire test is negative Hyperglycemia- Glucose 300 on admission, with follow-up 144 Check hemoglobin A1c and fasting lipid panel with a.m. labs Further more aggressive management if A1c is abnormal Remaining orders and notations as noted PG Care Time/CCT Total # of Minutes Spent Total Time Spent with Patient: Total time spent is greater than 50% in coordination of care (as documented) at patient's floor/unit and/or counseling patient: Coding Level of Care Code 16159 INT INP/OBS CARE MIN Diagnoses Alcohol abuse F10.10 Acute hypoxic respiratory failure J96.01 Hyperglycemia R73.9 Transaminitis R74.01 Abdominal pain R10.9 Constipation K59.00 Tobacco abuse Z72.0
[2024-06-12] MEDS ORDERED: LORazepam 2 MG/1 ML VIAL IV PRN ×3 (04:14)
[2024-06-12] MEDS ORDERED: Ativan IV Alcohol Withdrawal--Active Protocol IV PRN (04:14)
[2024-06-12] MEDS: FOLIC ACID 1 MG in SYRINGE 9.8 ML IV ONE (04:18)
[2024-06-12] MEDS: MULTIVITAMIN TAB PO STA (04:18)
[2024-06-12] MEDS: KETOROLAC TROMETHAMINE 15 MG/ML VIAL IV STA (04:18)
[2024-06-12] MEDS: THIAMINE HCL 100 MG in SYRINGE 9 ML IV STA (04:18)
[2024-06-12 04:30] LABS: Magnesium 1.3 mg/dl (1.7-2.4)
[2024-06-12] MEDS: NICOTINE 21 MG/24 HR TDSY TD SCH (04:45)
[2024-06-12 05:19] LABS: Folate (Folic Acid),Ser orPlas 3.7 ng/ml (>5.38)
[2024-06-12] MEDS: POTASSIUM CHLORIDE CRTAB 20 MEQ TABCR PO STA (05:42)
[2024-06-12] MEDS: MAGNESIUM SULFATE / D5W 1 GM/100 ML BAG IV SCH (05:42)
[2024-06-12 05:52] LABS: Chol HDL Ratio 9.7 (0-5)
[2024-06-12] MEDS ORDERED: busPIRone 5 MG TAB PO PRN (07:13)
[2024-06-12] MEDS ORDERED: ALBUTEROL HFA 8 GM INHALER INH PRN ×2 (07:13→07:21)
[2024-06-12] MEDS ORDERED: KETOROLAC TROMETHAMINE 15 MG/ML VIAL IV PRN (07:13)
[2024-06-12] MEDS ORDERED: CARBOHYDRATES FOR HYPOGLYCEMIA PO PRN (07:13)
[2024-06-12] MEDS ORDERED: GLUCAGON FOR INJ 1 MG VIAL SQ PRN (07:13)
[2024-06-12] MEDS ORDERED: GLUCOSE 40% GEL 15 GM TUBE PO PRN (07:13)
[2024-06-12] MEDS ORDERED: GLUCOSE 10 TAB/TUBE PO PRN (07:13)
[2024-06-12] MEDS ORDERED: ONDANSETRON INJ 2 MG/ML 2 ML VIAL IV PRN (07:13)
[2024-06-12] MEDS ORDERED: DEXTROSE 50% 50 ML SYRINGE IV PRN (07:13)
[2024-06-12 07:23] VITALS: RESP 18
--- NOTE | 2024-06-12 08:21 | Electrocardiogram Report ---
Test Reason : Blood Pressure : */* mmHG Vent. Rate : 94 BPM Atrial Rate : 94 BPM P-R Int : 130 ms QRS Dur : 76 ms QT Int : 386 ms P-R-T Axes : 16 35 33 degrees QTcB Int : 482 ms Normal sinus rhythm Prolonged QT Abnormal ECG When compared with ECG of 03-Oct-2022 16:29, No significant change was found Confirmed by Leo Espinal ([id number]) on 06/12/2024 8:20:46 AM Referred By: REFERRED SELF Confirmed By: Leo Espinal
[2024-06-12] MEDS: INSULIN ASPART PER UNIT CHARGE SC SCH (08:22)
[2024-06-12 08:56] LABS: Estimated Average Glucose 249 mg/dl; Hemoglobin A1C 10.3 % (4.5-5.6)
[2024-06-12] MEDS ORDERED: METHADONE ORAL SOLN 2 MG/ML PO SCH (09:00)
[2024-06-12 09:11] LABS: Hep B Surface Ag with confirm Negative (Negative)
[2024-06-12] MEDS: FLUoxetine HCL 20 MG CAP PO SCH (09:25)
[2024-06-12] MEDS: DOCUSATE SODIUM 100 MG CAP PO SCH (09:25)
[2024-06-12] MEDS: clonazePAM 0.25 MG OD TAB PO SCH (09:25)
[2024-06-12] MEDS: METHADONE ORAL SOLN 2 MG/ML PO SCH (09:40)
[2024-06-12] MEDS: PATIENT'S OWN CONTROLLED MED 1 PO SCH (09:41)
[2024-06-12 09:51] LABS: Hep C Ab Rflx HepCQuant RNA Prelim Positive (Negative)
[2024-06-12] MEDS ORDERED: CHOLESTYRAMINE LIGHT 4 GM PKT PO SCH (10:00)
[2024-06-12 10:52] VITALS: TEMP 97.9; O2SAT 95
--- NOTE | 2024-06-12 11:52 | Discharge Summary ---
Discharge Summary Date of Service June 12, 2024 Principal Dx & Hospital Course #1 = Principal Diagnosis (1) Alcohol abuse: She has a history of chronic alcohol abuse and actually was drinking the day of admission. She was counseled to stop drinking since she also has underlying liver disease. (2) Acute hypoxic respiratory failure: Transient while in the ED. Now resolved (3) Hyperglycemia: This was a nonfasting glucose test. This should be monitored further as an outpatient (4) Transaminitis: Chronic. Known hepatitis C. (5) Abdominal pain: The patient was complaining of right-sided abdominal pain on admission. Uncertain etiology. She is opioid dependent (6) Constipation: Stool softeners and MiraLAX added (7) Tobacco abuse: Counseled to stop smoking Plan Home today, June 12. All medications remain the same. Follow-up with PCP for further glucose monitoring and referral to a liver specialist Admission HPI Per Admitting Provider Patient is a 43-year-old with a past medical history chronic alcohol use, hepatitis C, anxiety, chronic opioid dependence. She presented to the ED via EMS due to abdominal pain, abdominal distention, and foul-smelling urine for 3 months. She was found to have a glucose level of 300 as well as glucose in her urine. Patient began to go through alcohol withdrawal and was given Ativan in the ED. She became hypoxic at 83% on room air, suspect secondary to IV benzodiazepine use versus restricted breathing with hepatomegaly and pain. She is being admitted for alcohol withdrawal. Patient seen at bedside with her mother present. Spent a significant amount of time with them. She stated that for the past few weeks she has had significant abdominal pain that is worsening, mostly on her right upper quadrant. It got significantly worse today after she took a drink of alcohol. She previously detoxed from alcohol for 2 days however could not take it anymore because she was not sleeping. She stated the pain has progressed up into her chest and feels like a burning sensation but denies it feeling like acid reflux. She also stated she has varicose veins of her lower extremity. Patient drinks approximately 3-5 shots of vodka a day and a mixed drink with soda, her last drink was at 4 to 8 PM this evening. Patient feels as though she is in significant withdrawal now in the 2 mg of Ativan in the ED is not helping at all. She has sweaty palms, ears are burning, and she is anxious. She is most concerned about the pressure in her abdomen. Patient also stated she has been out of Klonopin for 3 days and the pain is just too much. Of note recent PCP notes state that patient tested positive for alprazolam and is trying to be titrated off Klonopin. She has not prescribed alprazolam. Patient denies any past history of diabetes, she does have a significant family history of type 2 diabetes. Patient also stated she has not had a regular bowel movement in several weeks. She has just had small bowel movements, no melena or bright red blood in stool. She has not tried any stool softeners at home. Patient has not been able to eat much over the past 24 hours due to pain, she denies pain with eating. She denies any nausea. Patient smokes 1 pack of cigarettes per day. 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 She is still on methadone at 43 mg daily, is adamant that she needs this dosing every day. Patient is very concerned about missing of her home medications. She wishes to be full code. Patient is agreeable to inpatient admission for alcohol withdrawal and to further evaluate her hepatomegaly and abdominal pain. Patient was tearful on exam. Discharge Plan Discharge Items Patient Disposition: Home - Self-Care Reason For Visit: ACL WITHDRAWL, HYPOXIA Discharge Diagnosis: Alcohol intoxication, transient hypoxic respiratory failure, abdominal pain, hypomagnesemia Activity: Resume your previous activity Non-emergency contact: Primary Care Provider Call non-emergency contact if: your symptoms worsen Follow-up/Referrals: Manda Ocampo MD [Primary Care Provider] - Diet: Regular Addtl Attending Provider Instructions: All medications remain the same. See PCP as soon as possible for referral to a liver specialist Pending Studies at Discharge: No Stand-Alone Forms: My [employer], Smoking Cessation Medications and DC Order Prescriptions: New docusate sodium 100 mg Capsule 100 mg PO BID Qty: 0 0RF Continued ondansetron HCl 8 mg tablet 8 mg PO Q12H PRN (Reason: nausea and vomiting) Qty: 60 1RF fluoxetine 20 mg capsule 20 mg PO DAILY Qty: 30 5RF clonazepam 0.5 mg tablet See Rx Instructions PO .COMPLEX Qty: 60 0RF Rx Instructions: 1 tab PO in AM, 1 1/2 tab at bedtime X 1 month. gabapentin 400 mg capsule 400 mg PO TID Qty: 45 0RF buspirone 10 mg tablet 10 mg PO TID PRN (Reason: anxiety) Qty: 90 0RF Rx Instructions: PER PT "TAKE EVERY DAY" methadone 5 mg/5 mL Solution 43 mg PO DAILY albuterol sulfate [Ventolin HFA] 90 mcg/actuation HFA aerosol inhaler 1 - 2 puff inhalation .Q4-6HRS PRN (Reason: shortness of breath or wheezing) Discharge Orders: Discharge Order (Routine); Ordered 06/12/24 Ordered By: Camilo Tejeda Admission Data Admit Date/Time: 06/12/24 04:39 Attending Provider: Camilo Tejeda Admit Provider: Brian Godinez Primary Care Provider: Manda Ocampo Other Providers: Brian Godinez Hospital Stay Data Consultations 06/12/24 03:48 ED Decision to Admit Stat Diagnostic Imagining Performed 06/12/24 00:08 CT abd pelvis IV con only Stat Pending Results Patient Have Any Pending Studies at Discharge: No Discharge Instructions Given to Patient (Per Discharging Provider) All medications remain the same. See PCP as soon as possible for referral to a liver specialist Total Time Total Time Spent Total Time Spent (In Minutes): 45 minutes Coding Level of Care Code 11270 INP/OBS DISCH >30 MIN Diagnoses Alcohol abuse F10.10 Acute hypoxic respiratory failure J96.01 Hyperglycemia R73.9 Transaminitis R74.01 Abdominal pain R10.9 Constipation K59.00 Tobacco abuse Z72.0
[2024-06-12 11:55] VITALS: PULSE 75
[2024-06-12 15:40] VITALS: BP 163/89
[2024-06-13] MEDS ORDERED: THIAMINE HCL 100 MG in SYRINGE 9 ML IV SCH (09:00)
[2024-06-13] MEDS ORDERED: FOLIC ACID 1 MG in SYRINGE 9.8 ML IV SCH (09:00)
[2024-06-13 14:01] LABS: Hepatitis A Antibody IgM NON-REACTIVE (NON-REACTIVE); Hepatitis B Core Antibody IgM NON-REACTIVE (NON-REACTIVE)
[2024-06-14 08:52] LABS: Hepatitis C Vira RNA (Log) PCR <1.18 NOT DETECTED Log IU/mL (NOT DETECTED); Hepatitis C Viral RNA by PCR <15 NOT DETECTED IU/mL (NOT DETECTED)
== END 2024-06-12 16:13 | disposition home or self-care (01) | DRG 896 ==
LOC: SUATTDRO → ED 23:26 → INTOOBSV 06-12 04:39 → SUATTDRO 06-12 04:39 → 2S 06-12 04:39